=== PATIENT | male | born 1980 | race Hispanic/Latino ===

== ENCOUNTER 2018-04-03 20:10 | Emergency (ER) | payer SELFPAY ==
[2018-04-03 20:51] VITALS: O2SAT 96
--- NOTE | 2018-04-03 21:17 | C.PDOC ---
History Of Present Illness 37 y/o male presents to the ED complaining of palpitations after injecting cocaine half hour prior to arrival. He reports taking 2 mg of Xanax 4 times a day and admits to being on a methadone treatment. The patient also admits to ETOH abuse. 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 Patient would not like to be admitted for detox at this time. Time Seen by Provider: 04/03/18 20:47 Chief Complaint (Nursing): Palpitations History Per: Patient History/Exam Limitations: no limitations Onset/Duration Of Symptoms: Mins Current Symptoms Are (Timing): Still Present Modifying Factor(s): Cocaine Recent travel outside of the [place]: No Past Medical History Reviewed: Historical Data, Nursing Documentation, Vital Signs Vital Signs: Last Vital Signs Temp 98.6 F 04/03/18 20:45 Pulse 140 H 04/03/18 20:45 Resp 16 04/03/18 20:45 BP 129/88 04/03/18 20:45 Pulse Ox 96 04/03/18 20:45 - Medical History PMH: No Chronic Diseases Other Surgeries: release of compartment syndrome left foot Family History: States: Unknown Family Hx - Social History Hx Alcohol Use: Yes Hx Substance Use: Yes - Immunization History Hx Tetanus Toxoid Vaccination: No Hx Influenza Vaccination: No Hx Pneumococcal Vaccination: No Review Of Systems Constitutional: Negative for: Fever, Chills, Sweats Eyes: Negative for: Vision Change Cardiovascular: Positive for: Palpitations Neurological: Negative for: Headache Physical Exam - Physical Exam Appears: Other (flat affect, calm, cooperative) Skin: Warm, Dry Head: Atraumatic, Normacephalic Eye(s): bilateral: Normal Inspection, EOMI Oral Mucosa: Moist Neck: Supple Chest: Symmetrical Cardiovascular: Rhythm Regular, No Murmur Respiratory: No Rales, No Rhonchi, No Wheezing Gastrointestinal/Abdominal: Soft, No Tenderness, No Distention Extremity: Normal ROM Extremity: Bilateral: Normal Color And Temperature, Normal ROM Neurological/Psych: Normal Speech, Other (alert, awake, no gross focal deficits. ) ED Course And Treatment O2 Sat by Pulse Oximetry: 96 (RA) Pulse Ox Interpretation: Normal Medical Decision Making Medical Decision Making: persistent polysubstance abuse c/o palps, EKG NST, normal HR on eval defers inpt detox now, prefers to f/u as opt. Disposition Doctor Will See Patient In The: Office Counseled Patient/Family Regarding: Studies Performed, Diagnosis - Disposition Referrals: Alcoholics Anonymous [Outside] [facility] [Outside] [facility] [place] [Outside] [facility] [Outside] [facility] [Outside] Disposition: HOME/ ROUTINE Disposition Time: 21:17 Condition: GOOD Additional Instructions: seek outpatient resources and pre-screen for Detox programs as instructed by our Detox Evaluators. Avoid excessive substance abuse Sleep 8 hours per night. Instructions: Palpitations, Drug Abuse and Drug Addiction (DC) Forms: [facility] (Slovenian) - Clinical Impression Clinical Impression: Palpitations, Polysubstance (excluding opioids) dependence - Scribe Statement The provider has reviewed the documentation as recorded by the Scribe (Hue Brandon) Provider Attestation: All medical record entries made by the Scribe were at my direction and personally dictated by me. I have reviewed the chart and agree that the record accurately reflects my personal performance of the history, physical exam, medical decision making, and the department course for this patient. I have also personally directed, reviewed, and agree with the discharge instructions and disposition.
[2018-04-03 21:36] VITALS: BP 139/99; PULSE 99; RESP 18; TEMP 98.2
--- NOTE | 2018-04-07 17:36 | CARD ---
APPROVED REPORT Date of service: 04/03/2018 EKG Measurement Heart [id number] <Conclusion> Sinus tachycardia Otherwise normal ECG
== END 2018-04-03 21:38 | disposition home or self-care (01) ==
LOC: C.ER 20:10
DX: R00.2 Palpitations (principal); F19.20 Other psychoactive substance dependence, uncomplicated